=== PATIENT | female | born 1950 | race American Indian/Alaskan Native ===

== ENCOUNTER 2017-12-19 08:04 | Day surgery (SDC) | payer BC ==
[2017-12-18 06:36] VITALS: BMI 32.1
[2017-12-19 09:04] VITALS: PULSE 72; RESP 18; TEMP 98.1; O2SAT 99
[2017-12-19 09:21] LABS: BASO # 0.02 K/mm3 (0.0-2.0); BASO % 0.4 % (0.0-3.0); BLOOD UREA NITROGEN 12 mg/dL (7-21); EOS # 0.1 (0.0-0.7); EOS % 1.4 % (1.5-5.0); GFR AFRICAN-AMERICAN > 60; GFR NON-AFRICAN AMERICAN > 60; GRAN # 2.69 (1.4-6.5); GRAN % 47.6 % (50.0-68.0); HEMOGLOBIN 12.6 g/dL (12.0-16.0); LYMPH # 2.6 (1.2-3.4); LYMPH % 46.5 % (22.0-35.0); MEAN CELL VOLUME 87.9 fl (80.0-105.0); MEAN CORPUSCULAR HEMOGLOBIN 29.2 pg (25.0-35.0); MEAN CORPUSCULAR HGB CONC 33.2 g/dl (31.0-37.0); MONO # 0.2 (0.1-0.6); MONO % 4.1 % (1.0-6.0); RBC 4.31 10^6/uL (3.5-6.1); RED CELL DISTRIBUTION WIDTH 14.1 % (11.5-14.5); WHITE BLOOD COUNT 5.7 10^3/ul (4.5-11.0)
[2017-12-19 09:22] LABS: CALCIUM 8.7 mg/dL (8.4-10.5); HDL CHOLESTEROL 48 mg/dL (29-60)
[2017-12-19 09:29] LABS: INR 0.92 (0.93-1.08); PARTIAL THROMBOPLASTIN TIME 33.5 Seconds (25.1-36.5); PROTHROMBIN TIME 10.6 SECONDS (9.4-12.5)
[2017-12-19 09:32] LABS: LDL CHOLESTEROL 137 mg/dL (0-129)
[2017-12-19] MEDS ORDERED: Lidocaine 2% Inj (20ml) ONE (09:46)
[2017-12-19] MEDS ORDERED: Iohexol 350mgl/ml 50 ML ONE (09:47)
[2017-12-19] MEDS ORDERED: Iodixanol 320 MG/ML 200 ML BOTTLE IV ONE (09:47)
[2017-12-19] MEDS ORDERED: Iodixanol 320 MG/ML 100 ML BOTTLE IV ONE (09:47)
[2017-12-19] MEDS ORDERED: Phenylephrine 10 mg/ml Inj ONE (09:48)
[2017-12-19] MEDS ORDERED: Midazolam 2 MG/2 ML VIAL ONE ×2 (11:45→11:51)
[2017-12-19] MEDS ORDERED: Eptifibatide 20 mg/10mL Inj IVP ONE (12:05)
[2017-12-19] MEDS ORDERED: Sodium Chloride 0.9% 1,000 ML IV SCH (12:45)
[2017-12-19] MEDS ORDERED: Morphine 2 mg/ml ISec IVP ONE (17:07)
--- NOTE | 2017-12-19 18:53 | CARD ---
APPROVED REPORT EKG Measurement Heart [id number] CA 204P90 [id number] <Conclusion> Sinus bradycardia Otherwise normal ECG
--- NOTE | 2017-12-19 18:57 | CARD ---
APPROVED REPORT EKG Measurement Heart [id number] [place] 186P81 [id number] <Conclusion> Normal sinus rhythm Nonspecific ST abnormality Abnormal ECG
[2017-12-19 20:50] VITALS: BP 135/73
--- NOTE | 2017-12-26 10:39 | CARD ---
APPROVED REPORT HISTORY : The patient is a 67 year-old female with a history of . INDICATION The indication(s) include : positive stress test, chest pain, dyspnea. CASE TECHNIQUE The patient was brought electively to the Cardiac Catheterization Laboratory in a fasting state and was prepped and draped in a sterile manner. The right femoral groin was infiltrated with 2% Lidocaine subcutaneous anesthesia. A 5 Fr x 11 cm Ignacia sheath was inserted using coronary diagnostic catheters. The left coronary system was accessed and visualized with a Diagnostic catheter. The right coronary system was accessed and visualized with a Diagnostic catheter. The left ventricle was accessed and visualized with a Diagnostic catheter. Left ventricular/Aortic Valve gradient assessed on pullback. Left ventriculogram was performed in ARNOLD projection. Closure device was deployed with a 6 Fr Angio-Seal without any complications. The patient tolerated the procedure well and there were no complications associated with the procedure. Vessel Analysis The patient's coronary anatomy is left dominant. The left main coronary artery is a medium size vessel without significant stenosis. The left main bifurcates to the left anterior descending and circumflex. The left anterior descending artery is a large size vessel . There is a 70% stenosis in the proximal segment. The circumflex artery is a medium size vessel . There is a 80% stenosis in the proximal segment. 90% in mid The right coronary artery is a small size vessel . There is a 80% stenosis in the proximal segment. Left Ventricle The left ventricle is normal in size with normal contractility. There was no cardiomyopathy. The left ventricular ejection fraction is estimated to be 60%. PCI Technique Lesion Anticoagulation was achieved with Heparin. Percutaneous coronary intervention was performed on the proximal left anterior descending artery segment. The lesion stenosis prior to intervention was 70% with JUJU 3 flow. A 6 Fr XB 3.5 Guide Catheter was used to engage the lm ostium. A 0.014 x 180 cm Runthrough NS Interventional Guidewire was used to cross the lesion. BALLOON DILATION A Balloon catheter 3.0 x 12 mm Sprinter RX was inserted and inflated up to 8.00atm for 19seconds. STENT DEPLOYMENT A drug-eluting stent STENT RESOLUTE ESTEPHANIA 3.0 X 15 was inserted and inflated up to 15.00atm for 14seconds. Second stent was placed distally POST STENT DEPLOYMENT BALLOON DILATION Repeat angiography revealed the following post-stent deployment results: no disection, good appostion of stent.. Final angiography reveals 0 % stenosis with JUJU 3 flow. Conclusion Two vessel CAD. Normal left ventricular function. Successful PCI of LAD with SHRADDHA. Recommendations Smoking Cessation Aggressive Medical Therapy Weight Loss Reduction Program Stage pci of Cx.
== END 2017-12-19 21:24 | disposition home or self-care (01) ==
LOC: CATH 08:04 → 2RSO 12:54 → CATH 21:24
PROVIDERS: ATTEND Internal Medicine Cardiovascular Disease
DX: I25.10 Atherosclerotic heart disease of native coronary artery without angina pectoris (principal); I25.2 Old myocardial infarction; I11.0 Hypertensive heart disease with heart failure; I50.9 Heart failure, unspecified
CPT/HCPCS: 36415; 80048; 80061; 85025; 85175; 85610; 85730; 86850; 86900; 93005; 93458; 99152; 99153; C1713; C1725; C1760; C1769 ×2; C1874 ×2; C1887; C2629; C9600; J1327; J1644 ×2; J2250; J2270; J3010; J7030; J7040; Q9966; Q9967

== ENCOUNTER 2018-01-09 08:43 | Day surgery (SDC) | payer BC ==
[2018-01-07 08:48] VITALS: BMI 31.3
[2018-01-09 09:26] LABS: BASO # 0.02 K/mm3 (0.0-2.0); BASO % 0.3 % (0.0-3.0); EOS # 0.1 (0.0-0.7); EOS % 1.7 % (1.5-5.0); GRAN # 3.61 (1.4-6.5); GRAN % 51.1 % (50.0-68.0); HEMOGLOBIN 12.9 g/dL (12.0-16.0); LYMPH # 2.9 (1.2-3.4); LYMPH % 40.8 % (22.0-35.0); MEAN CELL VOLUME 87.9 fl (80.0-105.0); MEAN CORPUSCULAR HEMOGLOBIN 29.4 pg (25.0-35.0); MEAN CORPUSCULAR HGB CONC 33.4 g/dl (31.0-37.0); MEAN PLATELET VOLUME 10.7 fl (7.0-11.0); MONO # 0.4 (0.1-0.6); MONO % 6.1 % (1.0-6.0); RBC 4.39 10^6/uL (3.5-6.1); RED CELL DISTRIBUTION WIDTH 13.9 % (11.5-14.5); WHITE BLOOD COUNT 7.1 10^3/ul (4.5-11.0)
[2018-01-09 09:38] LABS: BLOOD UREA NITROGEN 10 mg/dL (7-21); CALCIUM 8.9 mg/dL (8.4-10.5); GFR AFRICAN-AMERICAN > 60; GFR NON-AFRICAN AMERICAN > 60; HDL CHOLESTEROL 46 mg/dL (29-60)
[2018-01-09 09:46] LABS: INR 1.03 (0.93-1.08); PARTIAL THROMBOPLASTIN TIME 34.3 Seconds (25.1-36.5); PROTHROMBIN TIME 11.8 SECONDS (9.4-12.5)
[2018-01-09 09:48] LABS: LDL CHOLESTEROL 83 mg/dL (0-129)
[2018-01-09] MEDS ORDERED: Lidocaine PF 2% (5 ml) Inj (For Cardiac Arrhy) IV ONE ×2 (10:41→11:08)
[2018-01-09] MEDS ORDERED: Iohexol 350mgl/ml 50 ML ONE (10:42)
[2018-01-09] MEDS ORDERED: Iodixanol 320 MG/ML 100 ML BOTTLE IV ONE (10:43)
[2018-01-09] MEDS ORDERED: Iodixanol 320 MG/ML 200 ML BOTTLE IV ONE (10:43)
[2018-01-09] MEDS ORDERED: Midazolam 2 MG/2 ML VIAL ONE (11:03)
[2018-01-09] MEDS ORDERED: Phenylephrine 10 mg/ml Inj ONE (11:05)
[2018-01-09] MEDS ORDERED: Nitroglycerin 50mg in D5W 50 MG/250 ML BOTTLE IV ONE (11:05)
[2018-01-09] MEDS ORDERED: Sodium Chloride 0.9% 1,000 ML IV SCH (11:45)
[2018-01-09] MEDS ORDERED: Albuterol-Ipratrop 3 mg / 0.5 (3 ml) UD IH PRN (12:29)
[2018-01-09 12:40] LABS: BLOOD UREA NITROGEN 9 mg/dL (7-21); CALCIUM 7.9 mg/dL (8.4-10.5); GFR AFRICAN-AMERICAN > 60; GFR NON-AFRICAN AMERICAN > 60
[2018-01-09 14:15] VITALS: O2SAT 100
[2018-01-09] MEDS ORDERED: Morphine 2 mg/ml ISec IVP ONE (14:30)
--- NOTE | 2018-01-09 16:12 | CARD ---
APPROVED REPORT Date of service: 01/09/2018 EKG Measurement Heart [id number] [place] [id number] [id number] <Conclusion> Sinus rhythm with 1st degree AV block with premature atrial complexes Nonspecific T wave abnormality Prolonged QT Abnormal ECG
[2018-01-09 17:47] VITALS: BP 129/48; RESP 21; TEMP 98.1
[2018-01-09 18:35] VITALS: PULSE 81
--- NOTE | 2018-01-23 05:40 | CARD ---
APPROVED REPORT Date of service: 01/09/2018 Procedure(s) performed: PTCA with Stenting HISTORY The patient is a 67 year-old female with a history of : most recent EF: 60%. (EF Method: Echocardiogram), previous diagnostic cath, tobacco history() : The patient is a former smoker , previous PCI (The PCI date was 12/18/2017), hypertension , dyslipidemia . INDICATION The indication(s) include : positive stress test, dyspnea. CASE TECHNIQUE The was infiltrated with 2% Lidocaine subcutaneous anesthesia. A 6 Fr difficulty. Coronary angiography was performed using coronary diagnostic catheters. Closure device was deployed with a 6 Fr Angio-Seal without any complications. The patient tolerated the procedure well and there were no complications associated with the procedure. PCI Technique Lesion Anticoagulation was achieved with Heparin. Percutaneous coronary intervention was performed on the mid circumflex artery segment. The lesion stenosis prior to intervention was 80% with JUJU 3 flow. A 6 Fr XB 3.5 Guide Catheter was used to engage the LM ostium. A 0.014 x 180 cm Runthrough NS Interventional Guidewire was used to cross the lesion. BALLOON DILATION A Balloon catheter 2.0 x 8 mm Mini Trek RX was inserted and inflated up to 7.00atm for 12seconds. STENT DEPLOYMENT A drug-eluting stent STENT RESOLUTE ESTEPHANIA 2.0 X22 was inserted and inflated up to 12.00atm for 23seconds. Secound stent deployed in proximal Cx. POST STENT DEPLOYMENT BALLOON DILATION Repeat angiography revealed the following post-stent deployment results: Good appostion of stent. . Final angiography reveals 0 % stenosis with JUJU 3 flow. PCI Technique Lesion 2 Percutaneous Coronary Intervention was performed on the proximal circumflex artery segment. The lesion stenosis prior to intervention was 90% with JUJU 3 flow. BALLOON DILATION A Balloon catheter 2.0 x 8 mm Mini Trek RX was inserted and inflated up to 15.00atm for 19seconds. STENT DEPLOYMENT A drug-eluting stent STENT RESOLUTE ESTEPHANIA 2.75 X12 was inserted and inflated up to 15.00atm for 19seconds. Final angiography reveals 0 % stenosis with JUJU 3 flow. Conclusion Successful PCI/Stent of proximal and mid Cx with SHRADDHA. Recommendations Smoking Cessation Cardiac Rehabilitation Referral Aggressive Medical TherapyCardiac Risk Reduction Program Weight Loss Reduction Program
== END 2018-01-09 19:22 | disposition home or self-care (01) ==
LOC: CATH 08:43 → 2RSO 12:00 → CATH 19:22
PROVIDERS: ATTEND Internal Medicine Cardiovascular Disease
DX: I25.119 Atherosclerotic heart disease of native coronary artery with unspecified angina pectoris (principal); I38 Endocarditis, valve unspecified; I10 Essential (primary) hypertension; E78.5 Hyperlipidemia, unspecified; Z87.891 Personal history of nicotine dependence
CPT/HCPCS: 36415; 80048; 80061; 85025; 85610; 85730; 86850; 86900; 93005; 99152; C1725; C1760; C1769 ×2; C1874 ×2; C1887; C1894; C9600; J0583; J1644; J2250; J2270; J3010; J7030; Q9966; Q9967 ×2